=== PATIENT | female | born 1980 | race Caucasian/White ===

== ENCOUNTER 2016-10-06 10:55 | Outpatient (CLI) | payer OTHER ==
--- NOTE | 2016-10-06 14:07 | DIAGNOSTIC IMAGING REPORT ---
PROCEDURE: US COMPLETE PELVIC W/TRANSVAG INDICATION: PELVIC PAIN IN FEMALE TECHNIQUE: Transabdominal and endovaginal leslie scale and color Doppler sonographic images of the female pelvis were obtained. COMPARISON: None. FINDINGS: TRANSABDOMINAL SCANS: The uterus is surgically absent. There has been a supracervical hysterectomy. The right ovary was not well seen. The left ovary contains a dominant follicle and is located anteriorly within the pelvis. Along the right aspect of what is reportedly the scar, there is an irregular nodule in the deep subcutaneous tissues adjacent to the muscular layer measuring 1.2 x 0.7 x 1.2 cm surrounded by a mildly hyperechoic tissue. No suspicious shadowing. There is a small amount of vascular flow to and within this nodule. TRANSVAGINAL SCANS: There are multiple small Nabothian cysts in the residual cervix. No suspicious . The right ovary measures 3.8 x 3.4 x 1.9 cm. There is an involuting corpus luteum measuring 13 mm. The left ovary measures 2.4 x 1.3 x 2.2 cm and has a normal follicular echotexture. Both ovaries demonstrate appropriate arterial and venous ovarian wave forms. No suspicious adnexal masses or free pelvic fluid. IMPRESSION: 1. Status post hysterectomy with normal appearing residual cervix (Nabothian cysts). 2. Involuting right ovarian corpus luteum. 3. There is a deep subcutaneous, mildly vascular 1.2 cm nodule underlying the right aspect of the patient's scar which may be a granuloma or stitch reaction. This is likely incidental, less likely to be the patient's source of pain. Clinical correlation recommended.
== END 2016-10-06 23:00 ==
LOC: US SRH 10:55
DX: N83.11 Corpus luteum cyst of right ovary (principal); Z90.710 Acquired absence of both cervix and uterus